=== PATIENT | female | born 1945 | race Asian ===

== ENCOUNTER 2021-08-04 22:20 | Emergency (ER) | payer OTHER, MEDICAID ==
[~2021-08-04] VITALS: Ht 152.4 cm; Wt 45.0 kg
[2021-08-04 22:28] VITALS: BP 164/80
[2021-08-05] MEDS ORDERED: HYDR-4001 MT (00:18)
== END 2021-08-05 00:30 | disposition home or self-care (01) ==
LOC: ER 22:20
DX: M25.561 Pain in right knee (principal); I10 Essential (primary) hypertension; Z98.890 Other specified postprocedural states; Z88.0 Allergy status to penicillin
CPT/HCPCS: 73562; 99283

== ENCOUNTER 2022-09-28 13:41 | Inpatient (IN) | payer OTHER, MEDICAID ==
[~2022-09-28] VITALS: Ht 152.4 cm; Wt 45.4 kg
[~2022-09-28 13:41] MED LIST: ALBU2.5V13 HHN; ALBU6.7H3 INH; FLUT1DIS6 INH; GABA-532 PO; HYDR-4001 MT
[2022-09-28] MEDS ORDERED: ALBUTEROL (0.083%) 2.5MG/3ML NEB HHN STA (14:15)
[2022-09-28] MEDS ORDERED: LEVOFLOXACIN 750MG PREMIX 150 ML IV ONE (14:15)
[2022-09-28] MEDS ORDERED: IPRATROPIUM BROMIDE (0.02%) 0.5MG/2.5ML NEB HHN STA (14:15)
[2022-09-28] MEDS ORDERED: METHYLPREDNISOLONE SOD SUCC 125 MG/2 ML VIAL IV STA (14:15)
[2022-09-28 14:50] LABS: BG BASE EXCESS 1.1 mmol/L (-2.0-2.0); BG CARBOXYHEMOGLOBIN 1.8 % (0.5-1.5); BG FRACTION INSPIRED OXYGEN 40; BG HCO3 ACT 27.2 mmol/L (22.0-26.0); BG METHEMOGLOBIN 0.3 % (0.0-1.5); BG OXYHEMOGLOBIN 96.9 % (94.0-97.0); BG PCO2 48.7 mmHg (35.0-45.0); BG PH 7.365 (7.350-7.450); BG PO2 154.8 mmHg (75.0-100.0); BG SAMPLE SITE LEFT BRACHIAL; BG TOTAL HEMOGLOBIN 14.1 g/dL (12.0-18.0); BG VENT MODE MASK - SIMPLE
[2022-09-28 15:20] LABS: CHLORIDE 104 mEq/L (98-107)
[2022-09-28 15:24] LABS: HEMATOCRIT. 40.8 % (36.0-48.0); HEMOGLOBIN. 13.5 g/dL (12.0-16.0); MEAN CORPUSCULAR HEMOGLOBIN 30.9 pg (28.0-32.0); MEAN CORPUSCULAR VOLUME 93.5 fL (81.0-99.0); MEAN PLATELET VOLUME 8.2 fl (7.4-10.4); PLATELET 233 x1000/uL (130-400); RED BLOOD CELL COUNT 4.37 mill/uL (4.2-5.4)
[2022-09-28 16:34] LABS: PLATELET ESTIMATE NORMAL
[2022-09-28] MEDS ORDERED: MORPHINE SULFATE 2 MG/ML CPJ (NOT FOR IM USE) IV ONE (17:30)
[2022-09-28] MEDS ORDERED: ALBUTEROL (0.083%) 2.5MG/3ML NEB HHN ONE (17:30)
[2022-09-28] MEDS ORDERED: ONDANSETRON HCL 4MG/2ML INJ IV PRN (18:00)
[2022-09-28] MEDS ORDERED: ACETAMINOPHEN 325MG TABLET PO PRN (18:00)
[2022-09-28] MEDS: AMLODIPINE 10MG TABLET PO SCH (18:07)
[2022-09-28] MEDS: IPRATROPIUM BROMIDE (0.02%) 0.5MG/2.5ML NEB HHN SCH (20:16)
[2022-09-28] MEDS: FAMOTIDINE 20MG TABLET PO SCH (21:00)
[2022-09-28] MEDS ORDERED: METHYLPREDNISOLONE SOD SUCC 40 MG/ML VIAL IV SCH (22:00)
[2022-09-29] VITALS (7 sets, daily range): BP systolic 115–149; BP diastolic 66–88
[2022-09-29] MEDS: IPRATROPIUM BROMIDE (0.02%) 0.5MG/2.5ML NEB HHN SCH ×4 (01:27→19:35)
[2022-09-29] MEDS: METHYLPREDNISOLONE SOD SUCC 40 MG/ML VIAL IV SCH ×3 (03:58→20:35)
[2022-09-29] MEDS ORDERED: LORA-249 MT (09:36)
[2022-09-29] MEDS: AMLODIPINE 10MG TABLET PO SCH (09:45)
[2022-09-29] MEDS ORDERED: LORAZEPAM 0.5MG TABLET PO NR (13:30)
[2022-09-29] MEDS ORDERED: CLONIDINE 0.1MG TABLET PO PRN (14:15)
[2022-09-29] MEDS: GUAIFENESIN-DM 200MG-20MG/10ML UDC PO PRN ×2 (14:15→22:17)
[2022-09-29] MEDS: GUAIFENESIN 600MG ER TABLET PO SCH (20:36)
[2022-09-29] MEDS: FAMOTIDINE 20MG TABLET PO SCH (20:36)
[2022-09-29] MEDS: ZOLPIDEM TARTRATE 5MG TABLET PO PRN (22:17)
[2022-09-30] MEDS: IPRATROPIUM BROMIDE (0.02%) 0.5MG/2.5ML NEB HHN SCH ×3 (01:56→14:21)
[2022-09-30] MEDS: METHYLPREDNISOLONE SOD SUCC 40 MG/ML VIAL IV SCH ×3 (04:58→21:08)
[2022-09-30 06:00] VITALS: BP 148/100
[2022-09-30] MEDS: GUAIFENESIN 600MG ER TABLET PO SCH ×2 (07:57→21:05)
[2022-09-30] MEDS: AMLODIPINE 10MG TABLET PO SCH (07:57)
[2022-09-30 08:00] VITALS: BP 159/97
[2022-09-30] MEDS: GUAIFENESIN-DM 200MG-20MG/10ML UDC PO PRN (10:34)
[2022-09-30 12:00] VITALS: BP 151/95
[2022-09-30 16:00] VITALS: BP 148/95
[2022-09-30] MEDS: IPRATROPIUM BROMIDE (0.02%) 0.5MG/2.5ML NEB HHN PRN ×2 (16:19→20:47)
[2022-09-30 20:00] VITALS: BP 142/88
[2022-09-30] MEDS: ZOLPIDEM TARTRATE 5MG TABLET PO PRN (21:06)
[2022-09-30] MEDS: FAMOTIDINE 20MG TABLET PO SCH (21:06)
[2022-09-30] MEDS: QUETIAPINE FUMARATE 50MG TABLET PO SCH (21:07)
[2022-10-01 04:00] VITALS: BP 109/65
[2022-10-01 08:00] VITALS: BP 110/65
[2022-10-01] MEDS: METHYLPREDNISOLONE SOD SUCC 40 MG/ML VIAL IV SCH (08:57)
[2022-10-01] MEDS: GUAIFENESIN 600MG ER TABLET PO SCH ×2 (08:58→20:39)
[2022-10-01] MEDS: AMLODIPINE 10MG TABLET PO SCH (08:58)
[2022-10-01] MEDS: IPRATROPIUM BROMIDE (0.02%) 0.5MG/2.5ML NEB HHN PRN ×3 (09:08→16:32)
[2022-10-01 12:00] VITALS: BP 125/69
[2022-10-01 16:00] VITALS: BP 102/71
[2022-10-01] MEDS: GUAIFENESIN-DM 200MG-20MG/10ML UDC PO PRN (18:26)
[2022-10-01] MEDS: ZOLPIDEM TARTRATE 5MG TABLET PO PRN (18:29)
[2022-10-01] MEDS: FAMOTIDINE 20MG TABLET PO SCH (20:39)
[2022-10-01] MEDS: QUETIAPINE FUMARATE 50MG TABLET PO SCH (20:39)
[2022-10-01 22:27] VITALS: BP 113/71
[2022-10-02] VITALS: BP 102/61
[2022-10-02 04:00] VITALS: BP 131/78
[2022-10-02 08:00] VITALS: BP 138/85
[2022-10-02] MEDS: GUAIFENESIN 600MG ER TABLET PO SCH ×2 (08:04→20:42)
[2022-10-02] MEDS: AMLODIPINE 10MG TABLET PO SCH (08:07)
[2022-10-02] MEDS ORDERED: METHYLPREDNISOLONE SOD SUCC 40 MG/ML VIAL IV SCH (09:00)
[2022-10-02] MEDS: IPRATROPIUM BROMIDE (0.02%) 0.5MG/2.5ML NEB HHN PRN ×3 (10:47→18:34)
[2022-10-02 12:00] VITALS: BP 118/69
[2022-10-02] MEDS: GUAIFENESIN-DM 200MG-20MG/10ML UDC PO PRN (13:27)
[2022-10-02 16:00] VITALS: BP 116/75
[2022-10-02] MEDS: IPRATROPIUM BROMIDE (0.02%) 0.5MG/2.5ML NEB HHN SCH (19:30)
[2022-10-02 20:00] VITALS: BP 120/76
[2022-10-02] MEDS: QUETIAPINE FUMARATE 50MG TABLET PO SCH (20:42)
[2022-10-02] MEDS: ZOLPIDEM TARTRATE 5MG TABLET PO PRN (20:42)
[2022-10-02] MEDS: FAMOTIDINE 20MG TABLET PO SCH (20:42)
[2022-10-03] VITALS: BP 114/75
[2022-10-03] MEDS: IPRATROPIUM BROMIDE (0.02%) 0.5MG/2.5ML NEB HHN SCH ×3 (00:51→08:23)
[2022-10-03 04:00] VITALS: BP 113/72
[2022-10-03 08:00] VITALS: BP 126/87
[2022-10-03] MEDS ORDERED: PREDNISONE 20MG TABLET PO SCH (09:00)
[2022-10-03] MEDS: GUAIFENESIN 600MG ER TABLET PO SCH ×2 (09:32→20:43)
[2022-10-03] MEDS: AMLODIPINE 10MG TABLET PO SCH (09:32)
[2022-10-03 12:00] VITALS: BP 127/78
[2022-10-03] MEDS ORDERED: IPRATROPIUM/ALBUTEROL 0.5-3(2.5)MG/3ML NEB HHN PRN (13:00)
[2022-10-03 16:00] VITALS: BP 124/77
[2022-10-03 20:00] VITALS: BP 123/85
[2022-10-03] MEDS: IPRATROPIUM/ALBUTEROL 0.5-3(2.5)MG/3ML NEB HHN SCH (20:35)
[2022-10-03] MEDS: ZOLPIDEM TARTRATE 5MG TABLET PO PRN (20:42)
[2022-10-03] MEDS: QUETIAPINE FUMARATE 50MG TABLET PO SCH (20:43)
[2022-10-03] MEDS: FAMOTIDINE 20MG TABLET PO SCH (20:43)
[2022-10-04] VITALS: BP 103/64
[2022-10-04] MEDS: IPRATROPIUM/ALBUTEROL 0.5-3(2.5)MG/3ML NEB HHN SCH ×4 (02:35→20:45)
[2022-10-04 04:00] VITALS: BP 115/79
[2022-10-04 08:00] VITALS: BP 124/88
[2022-10-04] MEDS: PREDNISONE 10MG TABLET PO SCH (08:20)
[2022-10-04] MEDS: AMLODIPINE 10MG TABLET PO SCH (08:20)
[2022-10-04] MEDS: GUAIFENESIN 600MG ER TABLET PO SCH ×2 (08:20→20:02)
[2022-10-04] MEDS: GUAIFENESIN-DM 200MG-20MG/10ML UDC PO PRN ×3 (10:57→21:56)
[2022-10-04 12:00] VITALS: BP 110/75
[2022-10-04 16:00] VITALS: BP 114/73
[2022-10-04 20:00] VITALS: BP 131/86
[2022-10-04] MEDS: FAMOTIDINE 20MG TABLET PO SCH (20:02)
[2022-10-04] MEDS: ZOLPIDEM TARTRATE 5MG TABLET PO PRN (20:02)
[2022-10-04] MEDS: QUETIAPINE FUMARATE 50MG TABLET PO SCH (20:02)
[2022-10-05 00:17] VITALS: BP 99/63
[2022-10-05] MEDS: IPRATROPIUM/ALBUTEROL 0.5-3(2.5)MG/3ML NEB HHN SCH ×4 (02:00→16:38)
[2022-10-05 06:22] LABS: HEMATOCRIT 38.3 % (36.0-48.0); HEMOGLOBIN 12.8 g/dL (12.0-16.0); MEAN CORPUSCULAR HEMOGLOBIN 30.9 pg (28.0-32.0); MEAN CORPUSCULAR VOLUME 92.6 fL (81.0-99.0); PLATELET 297 x1000/uL (130-400); RED BLOOD CELL COUNT 4.14 mill/uL (4.2-5.4); RED CELL DISTRIBUTION WIDTH 13.5 % (11.6-14.6)
[2022-10-05 08:00] VITALS: BP 131/77
[2022-10-05 08:13] LABS: CHLORIDE 105 mEq/L (98-107)
[2022-10-05] MEDS: AMLODIPINE 10MG TABLET PO SCH (10:47)
[2022-10-05] MEDS: PREDNISONE 10MG TABLET PO SCH (10:47)
[2022-10-05] MEDS: GUAIFENESIN 600MG ER TABLET PO SCH ×2 (10:48→20:19)
[2022-10-05 12:00] VITALS: BP 118/73
[2022-10-05] MEDS ORDERED: BUDESONIDE 0.5MG/2ML NEB HHN SCH (15:30)
[2022-10-05 16:00] VITALS: BP 109/74
[2022-10-05 20:00] VITALS: BP 113/70
[2022-10-05] MEDS: FAMOTIDINE 20MG TABLET PO SCH (20:18)
[2022-10-05] MEDS: QUETIAPINE FUMARATE 50MG TABLET PO SCH (20:19)
[2022-10-06 08:00] VITALS: BP 122/82
[2022-10-06] MEDS: GUAIFENESIN 600MG ER TABLET PO SCH (09:01)
[2022-10-06] MEDS: AMLODIPINE 10MG TABLET PO SCH (09:01)
[2022-10-06] MEDS: PREDNISONE 10MG TABLET PO SCH (09:01)
[2022-10-06] MEDS: IPRATROPIUM/ALBUTEROL 0.5-3(2.5)MG/3ML NEB HHN SCH ×2 (10:40→14:31)
[2022-10-06 12:00] VITALS: BP 138/83
[2022-10-06 15:26] VITALS: BP 138/83
[2022-10-06 16:00] VITALS: BP 105/78
== END 2022-10-06 19:10 | DRG 189 ==
LOC: ER 13:41 → 8WST 17:20 → EDBEDREQTM 17:21 → EDBEDREQ 17:21 → 8WST 10-01 04:57
PROVIDERS: ADMIT Internal Medicine; ATTEND Internal Medicine
DX: J96.01 Acute respiratory failure with hypoxia (principal); J44.1 Chronic obstructive pulmonary disease with (acute) exacerbation; I50.32 Chronic diastolic (congestive) heart failure; I11.0 Hypertensive heart disease with heart failure; I25.10 Atherosclerotic heart disease of native coronary artery without angina pectoris; F17.210 Nicotine dependence, cigarettes, uncomplicated; Z96.651 Presence of right artificial knee joint; Z88.0 Allergy status to penicillin; Z79.899 Other long term (current) drug therapy; Z95.5 Presence of coronary angioplasty implant and graft
CPT/HCPCS: 36415; 36600; 71045; 80053; 82375; 82805; 83880; 84484; 85025; 85027; 87426; 87804; 93005; 94640; 97116; 97162; 97166; 99285; C1893; C9803; J1956; J2270; J2920; J2930; J7512; J7626

== ENCOUNTER 2024-11-20 14:42 | Inpatient (IN) | payer BC, MEDICAID ==
[~2024-11-20] VITALS: Ht 154.9 cm; Wt 45.9 kg
[~2024-11-20 14:42] MED LIST changes: +GABA-1180 PO; -GABA-532 PO; +LORA-249 MT
[2024-11-20] MEDS: METHYLPREDNISOLONE SOD SUCC 125MG/2ML (ACT-O-VIAL) IV STA (15:28)
[2024-11-20] MEDS: MAGNESIUM 2 G PREMIX 50 ML IV ONE (15:28)
[2024-11-20 15:40] VITALS: PULSE 109; RESP 24
[2024-11-20] MEDS: IPRATROPIUM BROMIDE (0.02%) 0.5MG/2.5ML NEB HHN STA (15:41)
[2024-11-20] MEDS: ALBUTEROL (0.083%) 2.5MG/3ML NEB HHN SCH (15:42)
[2024-11-20 16:27] LABS: BASOPHILS % 0.2 % (0.0-2.0); EOSINOPHILS % 0.6 % (0.0-5.0); HEMOGLOBIN. 12.1 g/dL (12.0-16.0); LYMPHOCYTES % 12.4 % (20.0-50.0); MEAN CORPUSCULAR HEMOGLOBIN 31.8 pg (28.0-32.0); MEAN CORPUSCULAR HGB CONC 32.7 g/dL (31.0-37.0); MEAN CORPUSCULAR VOLUME 97.5 fL (81.0-99.0); MEAN PLATELET VOLUME 7.5 fl (7.4-10.4); MONOCYTES % 13.9 % (2.0-8.0); NEUTROPHILS % 72.9 % (40.0-76.0); PLATELET 278 x1000/uL (130-400); RED CELL DISTRIBUTION WIDTH 13.5 % (11.6-14.6); WHITE BLOOD COUNT 9.8 x1000/uL (4.5-11.0)
[2024-11-20 16:40] LABS: CALCIUM 9.3 mg/dL (8.7-10.4); CARBON DIOXIDE 29 mEq/L (21-32); CHLORIDE 103 mEq/L (98-107); POTASSIUM 4.1 mEq/L (3.5-5.1); SODIUM 140 mEq/L (136-145)
[2024-11-20 16:46] LABS: CREATININE 0.8 mg/dL (0.6-1.0); GLUCOSE 122 mg/dL (70-105); UREA NITROGEN BLOOD 15 mg/dL (9-23)
[2024-11-20 16:49] LABS: INR 0.9; PARTIAL THROMBOPLASTIN TIME 35.7 sec (23.4-31.0); PROTHROMBIN TIME 10.5 sec (9.6-11.0)
[2024-11-20 17:04] LABS: TROPONIN I HIGH SENSITIVITY < 4 ng/L (3.0-34)
[2024-11-20] MEDS ORDERED: MAGNESIUM/ALUMINUM HYDROXIDE/SIMETHICONE 30ML UDC PO PRN (23:45)
[2024-11-20] MEDS ORDERED: ACETAMINOPHEN 325MG TABLET PO PRN (23:45)
[2024-11-20] MEDS ORDERED: ONDANSETRON HCL 4MG/2ML INJ IV PRN (23:45)
[2024-11-20] MEDS ORDERED: IPRATROPIUM/ALBUTEROL 0.5-3(2.5)MG/3ML NEB HHN PRN (23:45)
[2024-11-20] MEDS ORDERED: DOCUSATE SODIUM 100MG CAPSULE PO PRN (23:45)
[2024-11-20] MEDS ORDERED: CLONIDINE 0.1MG TABLET PO PRN (23:45)
[2024-11-20] MEDS ORDERED: ENOXAPARIN 30MG/0.3ML SYR SUBCUT SCH (23:45)
[2024-11-21] VITALS (7 sets, daily range): BP systolic 106–128; BP diastolic 64–86; PULSE 69–104; RESP 16–22; TEMP 36.1–37.2; O2SAT 93–100
[2024-11-21] MEDS: PANTOPRAZOLE 40MG DR TABLET PO SCH (01:06)
[2024-11-21] MEDS: AZITHROMYCIN 500MG/250ML 250 ML IV SCH (04:29)
[2024-11-21] MEDS: METHYLPREDNISOLONE SOD SUCC 40MG/ML (ACT-O-VIAL) IV SCH (06:24)
[2024-11-21] MEDS: ENOXAPARIN 30MG/0.3ML SYR SUBCUT SCH (10:02)
[2024-11-21 10:18] LABS: HEMATOCRIT. 37.7 % (36.0-48.0); HEMOGLOBIN. 12.1 g/dL (12.0-16.0); MEAN CORPUSCULAR HEMOGLOBIN 31.3 pg (28.0-32.0); MEAN CORPUSCULAR HGB CONC 32.1 g/dL (31.0-37.0); MEAN CORPUSCULAR VOLUME 97.5 fL (81.0-99.0); MEAN PLATELET VOLUME 7.7 fl (7.4-10.4); PLATELET 286 x1000/uL (130-400); RED BLOOD CELL COUNT 3.87 mill/uL (4.2-5.4); RED CELL DISTRIBUTION WIDTH 13.3 % (11.6-14.6); WHITE BLOOD COUNT 8.1 x1000/uL (4.5-11.0)
[2024-11-21 10:28] LABS: CREATINE KINASE MB FRACTION 3.2 ng/mL (0.5-3.6)
[2024-11-21 10:32] LABS: CREATINE KINASE 86 IU/L (34-145)
[2024-11-21 10:38] LABS: CARBON DIOXIDE 28 mEq/L (21-32); CHLORIDE 105 mEq/L (98-107); POTASSIUM 4.4 mEq/L (3.5-5.1); SODIUM 138 mEq/L (136-145)
[2024-11-21 10:39] LABS: CALCIUM 9.5 mg/dL (8.7-10.4)
[2024-11-21 10:42] LABS: TROPONIN I HIGH SENSITIVITY < 4 ng/L (3.0-34)
[2024-11-21 10:44] LABS: GLUCOSE 225 mg/dL (70-105); TRIGLYCERIDE 70 mg/dL (0-150); UREA NITROGEN BLOOD 17 mg/dL (9-23)
[2024-11-21 10:45] LABS: ALANINE AMINOTRANSFERASE 16 IU/L (10-49); ALBUMIN 3.8 g/dL (3.2-4.8); ASPARTATE AMINOTRANSFERASE 14 IU/L (<34); LDL CHOLESTEROL 81 mg/dL (5-100)
[2024-11-21 10:46] LABS: BILIRUBIN TOTAL 0.2 mg/dL (0.1-1.0); CHOLESTEROL 142 mg/dL (<200); HDL CHOLESTEROL 49 mg/dL (>65); PHOSPHORUS 3.8 mg/dL (2.5-4.9); PROTEIN TOTAL 6.2 g/dL (6.0-8.3)
[2024-11-21 10:52] LABS: DIFFERENTIAL COMMENT 1
[2024-11-21 10:55] LABS: PROTHROMBIN TIME 10.8 sec (9.6-11.0)
[2024-11-21 10:56] LABS: BILIRUBIN DIRECT < 0.1 mg/dL (<=3.0)
[2024-11-21] MEDS ORDERED: CALC-38 MT (11:58)
[2024-11-21] MEDS ORDERED: MAGN200T5 PO (11:58)
[2024-11-21] MEDS ORDERED: LOSA50TA41 PO (11:58)
[2024-11-21] MEDS ORDERED: POTA8TAB70 PO (11:58)
[2024-11-21] MEDS ORDERED: TOPUD MT (11:58)
[2024-11-21] MEDS ORDERED: DOCU-422 PO (11:58)
[2024-11-21] MEDS ORDERED: QUET50TA23 PO (11:58)
[2024-11-21] MEDS ORDERED: ESCI5TAB PO (11:58)
[2024-11-21] MEDS: IPRATROPIUM/ALBUTEROL 0.5-3(2.5)MG/3ML NEB HHN SCH (15:47)
[2024-11-21 15:51] LABS: CREATINE KINASE MB FRACTION 4.1 ng/mL (0.5-3.6)
[2024-11-21 15:52] LABS: CREATINE KINASE 95 IU/L (34-145)
[2024-11-21 15:53] LABS: TROPONIN I HIGH SENSITIVITY < 4 ng/L (3.0-34)
[2024-11-21] MEDS: CEFTRIAXONE 1GM/50ML 50 ML IV SCH (17:53)
[2024-11-21 17:57] LABS: CLARITY URINE CLEAR (CLEAR); COLOR URINE YELLOW (YELLOW); GLUCOSE URINE NEGATIVE (NEGATIVE); KETONES URINE NEGATIVE (NEGATIVE); LEUKOCYTE ESTERASE URINE NEGATIVE (NEGATIVE); NITRITE URINE NEGATIVE (NEGATIVE); OCCULT BLOOD URINE NEGATIVE (NEGATIVE); PROTEIN URINE NEGATIVE (NEGATIVE); SPECIFIC GRAVITY URINE 1.015 (1.005-1.030); UROBILINOGEN URINE 0.2 E.U./dL (0.2-1.0)
[2024-11-21 18:56] LABS: *AMPHETAMINES SCREEN URINE NEGATIVE (NEGATIVE)
[2024-11-21 18:57] LABS: *BARBITURATES SCREEN URINE NEGATIVE (NEGATIVE); *BENZODIAZEPINES SCREEN URINE NEGATIVE (NEGATIVE); *COCAINE SCREEN URINE NEGATIVE (NEGATIVE); METHADONE URINE SCREEN NEGATIVE (NEGATIVE); OPIATES URINE SCREEN NEGATIVE (NEGATIVE); PHENCYCLIDINE URINE SCREEN NEGATIVE (NEGATIVE)
[2024-11-21 18:58] LABS: CANNABINOID URINE SCREEN NEGATIVE (NEGATIVE); ECSTASY MDMA SCREEN URINE NEGATIVE (NEGATIVE)
[2024-11-21] MEDS: GABAPENTIN 300MG CAPSULE PO SCH (20:40)
[2024-11-21] MEDS: QUETIAPINE FUMARATE 50MG TABLET PO SCH (20:41)
[2024-11-21] MEDS: ACETAMINOPHEN 325MG TABLET PO PRN (20:41)
[2024-11-21 23:04] LABS: PLATELET ESTIMATE NORMAL
[2024-11-22] VITALS (10 sets, daily range): BP systolic 113–148; BP diastolic 74–84; PULSE 85–117; RESP 18–21; TEMP 36.2–36.6; O2SAT 93–98
[2024-11-22] MEDS: AZITHROMYCIN 500MG/250ML 250 ML IV SCH (03:04)
[2024-11-22] MEDS: GUAIFENESIN 200MG/10ML SUGAR FREE UDC PO PRN (03:12)
[2024-11-22 06:48] LABS: BASOPHILS % 0.2 % (0.0-2.0); EOSINOPHILS % 0.1 % (0.0-5.0); HEMATOCRIT. 34.6 % (36.0-48.0); HEMOGLOBIN. 11.1 g/dL (12.0-16.0); LYMPHOCYTES % 8.4 % (20.0-50.0); MEAN CORPUSCULAR HGB CONC 32.1 g/dL (31.0-37.0); MEAN CORPUSCULAR VOLUME 96.7 fL (81.0-99.0); MONOCYTES % 6.5 % (2.0-8.0); NEUTROPHILS % 84.8 % (40.0-76.0); RED BLOOD CELL COUNT 3.58 mill/uL (4.2-5.4); RED CELL DISTRIBUTION WIDTH 13.2 % (11.6-14.6)
[2024-11-22 06:57] LABS: CHLORIDE 107 mEq/L (98-107); POTASSIUM 4.8 mEq/L (3.5-5.1); SODIUM 140 mEq/L (136-145)
[2024-11-22 06:58] LABS: CALCIUM 8.7 mg/dL (8.7-10.4); CARBON DIOXIDE 30 mEq/L (21-32)
[2024-11-22 07:03] LABS: CREATININE 0.9 mg/dL (0.6-1.0); GLUCOSE 99 mg/dL (70-105); UREA NITROGEN BLOOD 13 mg/dL (9-23)
[2024-11-22 07:05] LABS: PHOSPHORUS 3.4 mg/dL (2.5-4.9)
[2024-11-22 07:35] LABS: DIFFERENTIAL COMMENT 1
[2024-11-22 10:44] LABS: PLATELET 248 x1000/uL (130-400)
[2024-11-22] MEDS: ZOLPIDEM TARTRATE 5MG TABLET PO PRN (22:38)
[2024-11-23] VITALS (11 sets, daily range): BP systolic 122–159; BP diastolic 74–98; PULSE 56–109; RESP 17–22; TEMP 36.3–36.9; O2SAT 92–100
[2024-11-24] VITALS (7 sets, daily range): BP systolic 119–153; BP diastolic 84–100; PULSE 90–111; RESP 16–20; TEMP 36.2–36.6; O2SAT 95–99
[2024-11-24] MEDS: FAMOTIDINE 20MG TABLET PO SCH (06:39)
[2024-11-24] MEDS ORDERED: METH4TAB95 MT (17:48)
[2024-11-24] MEDS: CEFTRIAXONE 1GM/50ML 50 ML IV SCH (18:33)
[2024-11-25] VITALS (7 sets, daily range): BP systolic 138–155; BP diastolic 81–98; PULSE 78–117; RESP 18–20; TEMP 35.8–36.4; O2SAT 98–100
== END 2024-11-25 15:15 | disposition home or self-care (01) | DRG 190 ==
LOC: ER 14:42 → 6WST 17:14 → EDBEDREQ 21:42
PROVIDERS: ADMIT Internal Medicine; ATTEND Internal Medicine
DX: J44.1 Chronic obstructive pulmonary disease with (acute) exacerbation (principal); J96.01 Acute respiratory failure with hypoxia; I11.0 Hypertensive heart disease with heart failure; I50.9 Heart failure, unspecified; R50.9 Fever, unspecified; Z20.822 Contact with and (suspected) exposure to COVID-19; F17.210 Nicotine dependence, cigarettes, uncomplicated; Z96.659 Presence of unspecified artificial knee joint; Z88.0 Allergy status to penicillin; Z99.81 Dependence on supplemental oxygen; Z79.899 Other long term (current) drug therapy
CPT/HCPCS: 36415; 71045; 80048; 80061; 80076; 80305; 81003; 82550; 82553; 83036; 83735; 83880; 84100; 84145; 84443; 84484; 85025; 87070; 87426; 87804; 93005; 93306; 93970; 94070; 94640; 94664; 98960; 99285; A4606; J0456; J0696; J1650; J2919; J2920; J3475